=== PATIENT | female | born 1970 | race Caucasian/White ===

== ENCOUNTER 2017-05-20 20:29 | Inpatient (IN) | payer BC ==
[~2017-05-20] VITALS: Ht 160 cm; Wt 49.1 kg
[~2017-05-20 20:29] MED LIST: DESV50TA PO; ENOX40SY4 SQ; FOLI-17 PO; LAMO100T PO; LEVO50TA5 PO; LITH150C PO; MAGN400T26 PO; MIDAZOLAM 1 MG/ML, 5ML ONE; PROPOFOL 10 MG/ML, 100ML IV ONE; PROPOFOL 10 MG/ML, 20ML ONE; SUCCINYLCHOLINE 20 MG/ML, 10ML ONE; THIA100T6 PO; TOPI100T8 PO; TRAZ50TA18 PO; WARF2TAB PO; WARF5TAB7 PO; WARF7.5T6 PO-COUM; [UNRECOGNIZED DRUG - REMARK]
[2017-05-20] MEDS ORDERED: NALOXONE 1 MG/ML, 2ML ONE (20:35)
[2017-05-20] MEDS ORDERED: SUCCINYLCHOLINE 20 MG/ML, 10ML IVPush ONE (21:30)
[2017-05-20] MEDS ORDERED: SODIUM CHLORIDE 0.9% 1,000ML IVBOLUS ONE ×2 (21:30→23:00)
[2017-05-20] MEDS ORDERED: MIDAZOLAM 1 MG/ML, 5ML IVPush ONE (21:30)
[2017-05-20 21:39] LABS: MEAN CORPUSCULAR HEMOGLOBIN 35.5 pg (27.0-34.8); MEAN CORPUSCULAR HGB CONC 33.9 g/dL (32.4-35.8); MEAN CORPUSCULAR VOLUME 104.7 fL (80-100); MEAN PLATELET VOLUME 7.9 fL (7.4-10.4); PLATELET COUNT 254 x10^3/uL (130-400); RED BLOOD COUNT 4.47 x10^6/uL (3.82-5.3); RED CELL DISTRIBUTION WIDTH 13.1 % (9.6-15.2)
[2017-05-20 21:48] LABS: ACETAMINOPHEN 8 mcg/mL (10-30); ALANINE AMINOTRANSFERASE 24 U/L (12-78); ALBUMIN 4.2 g/dL (3.4-5.0); ANION GAP 13 mmol/L (5-15); CALCIUM 8.9 mg/dL (8.5-10.1); CHLORIDE 112 mmol/L (98-107)
[2017-05-20 21:53] LABS: ALKALINE PHOSPHATASE 99 U/L (45-117); BILIRUBIN,TOTAL 0.3 mg/dL (0.2-1.0); TOTAL PROTEIN 7.1 g/dL (6.4-8.2)
[2017-05-20 22:01] LABS: SALICYLATE LEVEL < 1.7 mg/dL (2.8-20.0)
[2017-05-20 22:03] LABS: AMPHETAMINE SCREEN, URINE Negative (Negative); BARBITURATE SCREEN, URINE Negative (Negative); BENZODIAZEPINE SCREEN, URINE Negative (Negative); CANNABINOID SCREEN, URINE Negative (Negative); COCAINE SCREEN, URINE Negative (Negative); METHADONE SCREEN, URINE Negative (Negative); OPIATE SCREEN, URINE Negative (Negative)
[2017-05-20 22:04] LABS: BASOPHILS # (AUTO) 0.13 x10^3/uL (0-0.1); BASOPHILS % (AUTO) 1 % (0-1); EOSINOPHILS # (AUTO) 0.67 x10^3/uL (0-0.4); EOSINOPHILS % (AUTO) 4 % (1-7); LYMPHOCYTES # (AUTO) 9.08 x10^3/uL (1-3.4); LYMPHOCYTES % (AUTO) 50 % (22-44); MD SCAN; MONOCYTES # (AUTO) 1.54 x10^3/uL (0.2-0.8); MONOCYTES % (AUTO) 9 % (2-9); NEUTROPHILS # (AUTO) 6.62 x10^3/uL (1.8-6.8); NEUTROPHILS % (AUTO) 37 % (42-75)
[2017-05-20 22:12] LABS: MICROSCOPIC AUTO
[2017-05-20 22:20] LABS: CULTURE INDICATED? NO
[2017-05-20] MEDS ORDERED: PROPOFOL 100 ML IV PRN ×3 (22:30→23:30)
[2017-05-20] MEDS ORDERED: PHARMACY MAY ADJ FOR RENAL FX MC SCH (23:00)
[2017-05-20] MEDS ORDERED: LIDOCAINE-MPF 1%, 2ML ENDO PRN (23:00)
[2017-05-20] MEDS ORDERED: CEFTRIAXONE PMX 1GM/50ML 50 ML IVPB ONE (23:00)
[2017-05-20] MEDS ORDERED: ONDANSETRON 2MG/ML, 2ML IVPush PRN (23:30)
[2017-05-20] MEDS ORDERED: VANCOMYCIN PER PHARMACY MC PRN (23:30)
[2017-05-21] MEDS ORDERED: CEFTRIAXONE PMX 1GM/50ML 50 ML ONE (00:34)
[2017-05-21] MEDS: SODIUM CHLORIDE 0.9% 1,000 ML IV SCH ×3 (00:38→17:12)
[2017-05-21] MEDS ORDERED: PIPERACILLIN/TAZO/PMX 3.375GM 50 ML ONE ×2 (02:04→09:57)
[2017-05-21] MEDS ORDERED: ENOXAPARIN 40 MG/0.4 ML ONE (02:04)
[2017-05-21] MEDS: PIPERACILLIN/TAZO/PMX 3.375GM 50 ML IV SCH ×3 (02:07→18:46)
[2017-05-21] MEDS: ENOXAPARIN 40 MG/0.4 ML SQ SCH (02:07)
[2017-05-21] MEDS ORDERED: FENTANYL PF 100 MCG/2ML ONE (02:13)
[2017-05-21] MEDS ORDERED: ICN FENTANYL 4MCG/ML IV IVPush PRN (02:30)
[2017-05-21] MEDS ORDERED: FENTANYL PF 100 MCG/2ML IVPush PRN (03:00)
[2017-05-21] MEDS ORDERED: PROPOFOL 100 ML IV ONE (04:00)
[2017-05-21 05:30] LABS: BASOPHILS # (AUTO) 0.09 x10^3/uL (0-0.1); BASOPHILS % (AUTO) 1 % (0-1); EOSINOPHILS # (AUTO) 0.12 x10^3/uL (0-0.4); EOSINOPHILS % (AUTO) 1 % (1-7); LYMPHOCYTES # (AUTO) 2.56 x10^3/uL (1-3.4); LYMPHOCYTES % (AUTO) 23 % (22-44); MD NO; MEAN CORPUSCULAR HGB CONC 33.8 g/dL (32.4-35.8); MEAN CORPUSCULAR VOLUME 103.8 fL (80-100); MEAN PLATELET VOLUME 7.4 fL (7.4-10.4); MONOCYTES # (AUTO) 0.64 x10^3/uL (0.2-0.8); MONOCYTES % (AUTO) 6 % (2-9); NEUTROPHILS # (AUTO) 7.66 x10^3/uL (1.8-6.8); NEUTROPHILS % (AUTO) 69 % (42-75); PLATELET COUNT 199 x10^3/uL (130-400); RED BLOOD COUNT 3.74 x10^6/uL (3.82-5.3); RED CELL DISTRIBUTION WIDTH 13.7 % (9.6-15.2)
[2017-05-21 05:33] LABS: CHLORIDE 124 mmol/L (98-107)
[2017-05-21 05:40] LABS: ALANINE AMINOTRANSFERASE 18 U/L (12-78); ALBUMIN 2.9 g/dL (3.4-5.0); ALKALINE PHOSPHATASE 59 U/L (45-117); ANION GAP 12 mmol/L (5-15); BILIRUBIN,TOTAL 0.5 mg/dL (0.2-1.0); CALCIUM 6.5 mg/dL (8.5-10.1); CREATININE 0.61 mg/dL (0.55-1.02)
[2017-05-21] MEDS ORDERED: ARIP20TA5 PO (10:40)
[2017-05-21] MEDS ORDERED: NALT50TA PO (10:42)
[2017-05-21] MEDS: FOLIC ACID 1 MG TABLET PO SCH (17:12)
[2017-05-21] MEDS: THIAMINE 100MG TABLET PO SCH (17:13)
[2017-05-21] MEDS ORDERED: PHARMACOKINETIC MONITORING MC PRN (18:00)
[2017-05-21 18:43] VITALS: BP 117/65
[2017-05-21] MEDS: VANCOMYCIN PMX 1GM/200ML 200 ML IV SCH (21:53)
[2017-05-21] MEDS: BENZONATATE 100 MG CAPSULE PO PRN (21:53)
[2017-05-22] MEDS: SODIUM CHLORIDE 0.9% 1,000 ML IV SCH ×3 (01:29→20:32)
[2017-05-22 02:02] VITALS: BP 112/65
[2017-05-22] MEDS: ENOXAPARIN 40 MG/0.4 ML SQ SCH (02:22)
[2017-05-22] MEDS: PIPERACILLIN/TAZO/PMX 3.375GM 50 ML IV SCH ×3 (02:23→17:23)
[2017-05-22 05:47] LABS: O2 FLOW ROOM AIR L/min
[2017-05-22 06:01] LABS: ALBUMIN 2.7 g/dL (3.4-5.0); ANION GAP 9 mmol/L (5-15); CHLORIDE 114 mmol/L (98-107)
[2017-05-22 06:05] LABS: ALANINE AMINOTRANSFERASE 14 U/L (12-78); ALKALINE PHOSPHATASE 56 U/L (45-117); BILIRUBIN,TOTAL 1.4 mg/dL (0.2-1.0); CREATININE 0.55 mg/dL (0.55-1.02); TOTAL PROTEIN 4.7 g/dL (6.4-8.2)
[2017-05-22 06:09] LABS: BASOPHILS # (AUTO) 0.06 x10^3/uL (0-0.1); BASOPHILS % (AUTO) 1 % (0-1); EOSINOPHILS # (AUTO) 0.09 x10^3/uL (0-0.4); EOSINOPHILS % (AUTO) 1 % (1-7); LYMPHOCYTES # (AUTO) 1.44 x10^3/uL (1-3.4); LYMPHOCYTES % (AUTO) 19 % (22-44); MD NO; MEAN CORPUSCULAR HGB CONC 35.2 g/dL (32.4-35.8); MEAN CORPUSCULAR VOLUME 102.2 fL (80-100); MEAN PLATELET VOLUME 7.7 fL (7.4-10.4); MONOCYTES # (AUTO) 0.42 x10^3/uL (0.2-0.8); MONOCYTES % (AUTO) 5 % (2-9); NEUTROPHILS # (AUTO) 5.77 x10^3/uL (1.8-6.8); NEUTROPHILS % (AUTO) 74 % (42-75); PLATELET COUNT 161 x10^3/uL (130-400); RED BLOOD COUNT 3.32 x10^6/uL (3.82-5.3); RED CELL DISTRIBUTION WIDTH 13.1 % (9.6-15.2)
[2017-05-22 08:00] VITALS: BP 106/63
[2017-05-22] MEDS ORDERED: POTASSIUM PHOSPHATE 44 MEQ in SODIUM CHLORIDE 0.9% 500 ML IV ONE (10:30)
[2017-05-22] MEDS: VANCOMYCIN PMX 1GM/200ML 200 ML IV SCH (12:40)
[2017-05-22 14:53] VITALS: BP 111/68
[2017-05-22] MEDS: BENZONATATE 100 MG CAPSULE PO PRN (16:02)
[2017-05-22] MEDS: FOLIC ACID 1 MG TABLET PO SCH (16:30)
[2017-05-22] MEDS: THIAMINE 100MG TABLET PO SCH (16:30)
[2017-05-22] MEDS: TOPIRAMATE 100 MG TABLET PO SCH (17:17)
[2017-05-22] MEDS: LAMOTRIGINE 100 MG TABLET PO SCH (17:18)
[2017-05-22 18:42] VITALS: BP 93/54
[2017-05-22] MEDS ORDERED: KETOROLAC 30 MG/1 ML IVPush ONE (21:30)
[2017-05-22 23:10] LABS: TROPONIN I < 0.015 ng/mL (0.000-0.045)
[2017-05-23] MEDS: BENZONATATE 100 MG CAPSULE PO PRN ×3 (01:17→16:14)
[2017-05-23 01:28] VITALS: BP 105/67
[2017-05-23] MEDS: ENOXAPARIN 40 MG/0.4 ML SQ SCH (02:32)
[2017-05-23] MEDS: PIPERACILLIN/TAZO/PMX 3.375GM 50 ML IV SCH (02:33)
[2017-05-23] MEDS: SODIUM CHLORIDE 0.9% 1,000 ML IV SCH (02:33)
[2017-05-23] MEDS: TOPIRAMATE 100 MG TABLET PO SCH ×2 (04:33→16:15)
[2017-05-23] MEDS: LAMOTRIGINE 100 MG TABLET PO SCH ×2 (04:33→16:15)
[2017-05-23 05:27] LABS: BASOPHILS # (AUTO) 0.13 x10^3/uL (0-0.1); BASOPHILS % (AUTO) 3 % (0-1); CHLORIDE 116 mmol/L (98-107); EOSINOPHILS # (AUTO) 0.19 x10^3/uL (0-0.4); EOSINOPHILS % (AUTO) 4 % (1-7); LYMPHOCYTES # (AUTO) 1.67 x10^3/uL (1-3.4); LYMPHOCYTES % (AUTO) 37 % (22-44); MD NO; MEAN CORPUSCULAR HEMOGLOBIN 36.1 pg (27.0-34.8); MEAN CORPUSCULAR HGB CONC 35.1 g/dL (32.4-35.8); MEAN CORPUSCULAR VOLUME 103.1 fL (80-100); MEAN PLATELET VOLUME 8.2 fL (7.4-10.4); MONOCYTES # (AUTO) 0.26 x10^3/uL (0.2-0.8); MONOCYTES % (AUTO) 6 % (2-9); NEUTROPHILS # (AUTO) 2.31 x10^3/uL (1.8-6.8); NEUTROPHILS % (AUTO) 51 % (42-75); PLATELET COUNT 111 x10^3/uL (130-400); RED BLOOD COUNT 2.92 x10^6/uL (3.82-5.3)
[2017-05-23 05:40] LABS: ALANINE AMINOTRANSFERASE 14 U/L (12-78); ALBUMIN 2.3 g/dL (3.4-5.0); ALKALINE PHOSPHATASE 45 U/L (45-117); ANION GAP 8 mmol/L (5-15); BILIRUBIN,TOTAL 0.8 mg/dL (0.2-1.0); CALCIUM 6.8 mg/dL (8.5-10.1); CREATININE 0.65 mg/dL (0.55-1.02); TOTAL PROTEIN 4.6 g/dL (6.4-8.2); TRIGLYCERIDES 66 mg/dL (50-200)
[2017-05-23 08:02] VITALS: BP 104/64
[2017-05-23] MEDS: AMPICILLIN/SULBACTAM 3 GM in SODIUM CHLORIDE 0.9% 100 ML IV SCH ×3 (08:37→23:07)
[2017-05-23] MEDS: LEVOTHYROXINE 50 MCG TABLET PO SCH (08:38)
[2017-05-23 12:45] LABS: FOLATE LEVEL > 20.0 ng/mL (3.1-17.5)
[2017-05-23 15:07] VITALS: BP 108/69
[2017-05-23] MEDS: THIAMINE 100MG TABLET PO SCH (16:14)
[2017-05-23 20:30] VITALS: BP 110/75
[2017-05-24 02:00] VITALS: BP 100/69
[2017-05-24] MEDS: ENOXAPARIN 40 MG/0.4 ML SQ SCH (02:00)
[2017-05-24 05:43] LABS: ANION GAP 9 mmol/L (5-15); CALCIUM 7.5 mg/dL (8.5-10.1); CHLORIDE 119 mmol/L (98-107)
[2017-05-24 05:46] LABS: CREATININE 0.59 mg/dL (0.55-1.02)
[2017-05-24 05:49] LABS: BASOPHILS # (AUTO) 0.03 x10^3/uL (0-0.1); BASOPHILS % (AUTO) 1 % (0-1); EOSINOPHILS # (AUTO) 0.23 x10^3/uL (0-0.4); EOSINOPHILS % (AUTO) 6 % (1-7); LYMPHOCYTES # (AUTO) 1.19 x10^3/uL (1-3.4); LYMPHOCYTES % (AUTO) 31 % (22-44); MD NO; MEAN CORPUSCULAR HEMOGLOBIN 35.3 pg (27.0-34.8); MEAN CORPUSCULAR HGB CONC 34.2 g/dL (32.4-35.8); MEAN CORPUSCULAR VOLUME 103.4 fL (80-100); MEAN PLATELET VOLUME 7.4 fL (7.4-10.4); MONOCYTES % (AUTO) 5 % (2-9); NEUTROPHILS % (AUTO) 57 % (42-75); PLATELET COUNT 141 x10^3/uL (130-400); RED BLOOD COUNT 2.99 x10^6/uL (3.82-5.3); RED CELL DISTRIBUTION WIDTH 12.7 % (9.6-15.2)
[2017-05-24] MEDS: TOPIRAMATE 100 MG TABLET PO SCH ×2 (06:10→16:47)
[2017-05-24] MEDS: AMPICILLIN/SULBACTAM 3 GM in SODIUM CHLORIDE 0.9% 100 ML IV SCH ×3 (06:13→17:27)
[2017-05-24] MEDS: LAMOTRIGINE 100 MG TABLET PO SCH ×2 (06:13→16:47)
[2017-05-24 08:00] VITALS: BP 109/67
[2017-05-24] MEDS: LEVOTHYROXINE 50 MCG TABLET PO SCH (08:30)
[2017-05-24] MEDS: MULTIVITAMIN 1 TABLET PO SCH (08:30)
[2017-05-24 14:47] VITALS: BP 104/67
[2017-05-24] MEDS: THIAMINE 100MG TABLET PO SCH (16:47)
[2017-05-24 19:50] VITALS: BP 101/65
[2017-05-24] MEDS ORDERED: ACETAMINOPHEN 325 MG TABLET ONE (20:00)
[2017-05-24] MEDS ORDERED: ACETAMINOPHEN 325 MG TABLET PO PRN (20:00)
[2017-05-25] MEDS: AMPICILLIN/SULBACTAM 3 GM in SODIUM CHLORIDE 0.9% 100 ML IV SCH ×5 (01:00→17:41)
[2017-05-25] MEDS: ENOXAPARIN 40 MG/0.4 ML SQ SCH (01:01)
[2017-05-25 01:40] VITALS: BP 107/71
[2017-05-25] MEDS: TOPIRAMATE 100 MG TABLET PO SCH ×2 (05:02→16:56)
[2017-05-25] MEDS: LAMOTRIGINE 100 MG TABLET PO SCH ×2 (05:03→16:56)
[2017-05-25 05:41] LABS: CHLORIDE 119 mmol/L (98-107)
[2017-05-25 05:47] LABS: ANION GAP 11 mmol/L (5-15); CALCIUM 7.6 mg/dL (8.5-10.1); CREATININE 0.77 mg/dL (0.55-1.02)
[2017-05-25 06:02] LABS: MEAN CORPUSCULAR HEMOGLOBIN 35.5 pg (27.0-34.8); MEAN CORPUSCULAR HGB CONC 34.5 g/dL (32.4-35.8); MEAN CORPUSCULAR VOLUME 102.9 fL (80-100); RED BLOOD COUNT 3.11 x10^6/uL (3.82-5.3); RED CELL DISTRIBUTION WIDTH 12.6 % (9.6-15.2)
[2017-05-25 06:38] LABS: MEAN PLATELET VOLUME 7.6 fL (7.4-10.4); PLATELET COUNT 94 x10^3/uL (130-400)
[2017-05-25 06:40] LABS: BASOPHILS # (AUTO) 0.08 x10^3/uL (0-0.1); BASOPHILS % (AUTO) 2 % (0-1); EOSINOPHILS # (AUTO) 0.23 x10^3/uL (0-0.4); EOSINOPHILS % (AUTO) 6 % (1-7); LYMPHOCYTES # (AUTO) 1.47 x10^3/uL (1-3.4); LYMPHOCYTES % (AUTO) 37 % (22-44); MD SCAN; MONOCYTES # (AUTO) 0.21 x10^3/uL (0.2-0.8); MONOCYTES % (AUTO) 5 % (2-9); NEUTROPHILS # (AUTO) 1.96 x10^3/uL (1.8-6.8); NEUTROPHILS % (AUTO) 50 % (42-75)
[2017-05-25 07:01] VITALS: BP 103/60
[2017-05-25] MEDS: MULTIVITAMIN 1 TABLET PO SCH (09:14)
[2017-05-25] MEDS: LEVOTHYROXINE 50 MCG TABLET PO SCH (09:14)
[2017-05-25 13:11] VITALS: BP 115/72
[2017-05-25] MEDS: THIAMINE 100MG TABLET PO SCH (17:41)
== END 2017-05-25 18:17 | disposition home or self-care (01) | DRG 896 ==
LOC: ED 21:23 → EDIP 21:25 → 4WST 05-21 16:51
PROVIDERS: ADMIT Hospitalist; ATTEND Hospitalist
PROC: 5A1935Z Respiratory Ventilation, Less than 24 Consecutive Hours (ICD-10-PCS; principal; 2017-05-20)
PROC: 0BH17EZ Insertion of Endotracheal Airway into Trachea, Via Natural or Artificial Opening (ICD-10-PCS; 2017-05-20)
DX: F10.129 Alcohol abuse with intoxication, unspecified (principal); G92 Toxic encephalopathy; J96.00 Acute respiratory failure, unspecified whether with hypoxia or hypercapnia; J18.9 Pneumonia, unspecified organism; E87.2 Acidosis; F33.9 Major depressive disorder, recurrent, unspecified; T40.2X2A Poisoning by other opioids, intentional self-harm, initial encounter; D75.89 Other specified diseases of blood and blood-forming organs; E87.8 Other disorders of electrolyte and fluid balance, not elsewhere classified; E03.9 Hypothyroidism, unspecified; E87.6 Hypokalemia; G40.909 Epilepsy, unspecified, not intractable, without status epilepticus; Y90.8 Blood alcohol level of 240 mg/100 ml or more; Z51.5 Encounter for palliative care; Z99.11 Dependence on respirator [ventilator] status; Y92.89 Other specified places as the place of occurrence of the external cause; Z86.718 Personal history of other venous thrombosis and embolism; Z91.5 Personal history of self-harm
CPT/HCPCS: 31500; 36415; 36600; 51702; 71045; 80048; 80053; 80178; 80202; 80307; 80329; 81001; 82607; 82746; 82803; 82962; 83605; 83735; 84100; 84443; 84478; 84484; 84703; 85025; 87040; 87070; 87205; 93005; 93306; 94002; 94003; 99291; J0295; J0696; J1650; J1885; J2250; J2543; J2704; J3370; G0480; J0330; J7030; J7040